=== PATIENT | male | born 1965 | race Caucasian/White ===

== ENCOUNTER 2016-08-19 02:39 | Emergency (ER) | payer BC ==
--- OUTSIDE RECORDS SUMMARY | 2016-08-19 03:01 | XMS REPORT | Continuity of Care Document ---
:1965 Author Organization [employer] [place] [address] Care Team Providers Name Role Phone Unavailable Primary Care Provider Unavailable Source Comments This disclosure is being made pursuant to the [employer] program and maynot contain all information available regarding this patient.[employer] Active Allergies and Adverse Reactions Not on File Current Medications Be aware that medications may not be up to date as of this document. Alwaysverify current medications with the patient. Not on file Active Problems Not on file Social History Tobacco Use Types Packs/Day Years Used Date Never Assessed Plan of Care Health Maintenance Due Date Last Done Comments Retired-Pertussis Vaccine Adult 1982 Retired-Tetanus Vaccine Adult 1982 Colonoscopy 2013 Well Adult Visit 2013 Retired-INFLUENZA VACCINE 11/08/2014 Results from Last 3 Months Not on file
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
[2016-08-19 03:14] LABS: Urine Bilirubin Negative (NEGATIVE); Urine Ketone Negative (NEGATIVE); Urine Nitrite Negative (NEGATIVE); Urine Protein Negative (NEGATIVE); Urine Specific Gravity >=1.030 SP.GR. (1.005-1.030); Urine Urobilinogen Normal (NORMAL); Urine pH 5.5 pH (5.0-7.0)
[2016-08-19 03:33] LABS: Urine Appearance Clear; Urine Bacteria None Seen; Urine Blood 5 /ul (NEGATIVE); Urine Color Dark Yellow; Urine RBC None Seen /hpf (0-5); Urine WBC None Seen /hpf (0-5)
[2016-08-19] MEDS ORDERED: HYDROmorphone HCL 2 MG/ML VIAL IV ONE (03:59)
[2016-08-19] MEDS ORDERED: CYCLOBENZAPRINE HCL 10 MG TABLET PO ONE (04:00)
[2016-08-19] MEDS ORDERED: oxyCODONE HCL 5 MG TABLET PO ONE (04:00)
[2016-08-19] MEDS ORDERED: HYDROmorphone HCL 2 MG/ML VIAL ONE ×2 (04:01→05:08)
[2016-08-19] MEDS ORDERED: ACETAMINOPHEN 500 MG TABLET PO ONE (04:01)
[2016-08-19] MEDS ORDERED: oxyCODONE HCL 5 MG TABLET ONE (04:08)
[2016-08-19] MEDS ORDERED: CYCLOBENZAPRINE HCL 10 MG TABLET ONE (04:09)
[2016-08-19] MEDS ORDERED: PROMETHAZINE HCL 12.5 MG in DEXTROSE 5 % IN WATER 50 ML IV ONE ×2 (04:41)
[2016-08-19 05:26] VITALS: BP 149/83
== END 2016-08-19 05:20 | disposition short-term general hospital (02) ==
LOC: ER 02:39
DX: M84.48XA Pathological fracture, other site, initial encounter for fracture (principal); S37.019A Minor contusion of unspecified kidney, initial encounter; V40.0XXA Car driver injured in collision with pedestrian or animal in nontraffic accident, initial encounter; Y92.411 Interstate highway as the place of occurrence of the external cause